=== PATIENT | female | born 1985 | race Hispanic/Latino ===

== ENCOUNTER 2022-12-20 11:28 | Day surgery (SDC) | payer OTHER ==
[2022-12-20 17:12] LABS: Hematocrit 40.3 % (34.9-44.5); Hemoglobin 13.6 g/dL (12.0-15.5); Mean Corpuscular HGB CONC 33.7 g/dL (32.0-36.0); Mean Corpuscular Hemoglobin 29.6 pg (27.0-33.0); Mean Corpuscular Volume 87.8 fl (81.6-98.3); Mean Platelet Volume 10.7 fl (7.4-10.4); Platelet Count 223 10x3/uL (150-450); RBC Distribution Width 13.9 % (11.5-14.5); Red Blood Cell (RBC) Count 4.59 10x6/uL (3.90-5.03); White Blood Cell (WBC) Count 10.3 10x3/uL (3.5-10.5)
[2022-12-20 17:42] LABS: ALT (SGPT) 26 U/L (8-55); AST (SGOT) 25 U/L (5-34); Albumin 3.1 g/dL (3.5-5.0); Alkaline Phosphatase 171 U/L (40-110); Anion Gap 13 mmol/L (10-20); BUN (Urea Nitrogen) 6 mg/dL (7.0-18.7); Bilirubin, Total 0.3 mg/dL (0.2-1.2); Calc. Creatinine Clearance 0 mL/min (70-130); Calcium 8.6 mg/dL (7.8-10.44); Carbon Dioxide 17 mmol/L (22-29); Chloride 110 mmol/L (98-107); Estimated GFR 118; Globulin 2.7 g/dL (2.4-3.5); Glucose 90 mg/dL (70-105); Potassium 3.8 mmol/L (3.5-5.1); Protein, Total 5.8 g/dL (6.0-8.3); Sodium 136 mmol/L (136-145)
[2022-12-20 18:02] LABS: Syphilis Antibody Nonreactive (Nonreactive); Syphilis Antibody Index 0.05 S/CO (<1.00 Non-Reactive)
[2022-12-20 18:03] LABS: HBSAg Index 0.15 S/CO (0-0.99); Hep B Surf Ag - L&D Non-Reactive S/CO (NonReactive)
[2022-12-20 20:19] LABS: Hemoglobin A1c 5.7 % (4.0-6.0)
== END 2022-12-20 14:50 | disposition home health service (06) ==
LOC: CSHLD/OP 11:28
PROVIDERS: ATTEND Family Medicine
DX: Z36.89 Encounter for other specified antenatal screening (principal); O09.513 Supervision of elderly primigravida, third trimester; O41.03X0 Oligohydramnios, third trimester, not applicable or unspecified; O10.913 Unspecified pre-existing hypertension complicating pregnancy, third trimester; Z3A.36 36 weeks gestation of pregnancy
CPT/HCPCS: 76819; 80053; 83036; 85027; 86780; 86850; 86900; 86901; 87340

== ENCOUNTER 2022-12-22 11:29 | Inpatient (IN) | payer OTHER ==
[2022-12-22] MEDS ORDERED: NS w/ Oxytocin 30 units 500 ML IV SCH (12:02)
[2022-12-22] MEDS ORDERED: Bicitra 30 ML UDCUP PO PRN (12:02)
[2022-12-22] MEDS ORDERED: Promethazine HCl 25 MG/ML VIAL IM PRN ×3 (12:02→17:48)
[2022-12-22] MEDS ORDERED: Methylergonovine 0.2 MG/ML VIAL IM PRN (12:02)
[2022-12-22] MEDS ORDERED: Diphenoxylate HCl/Atropine Tablet PO PRN (12:02)
[2022-12-22] MEDS ORDERED: Famotidine/PF 20 mg/2ml Vial SLOW IVP PRN (12:02)
[2022-12-22] MEDS ORDERED: Ondansetron PF 4 MG/2 ML Vial IVP PRN ×3 (12:02→17:48)
[2022-12-22] MEDS ORDERED: Lactated Ringer's 1,000 ML IV SCH (12:02)
[2022-12-22] MEDS ORDERED: hydrALAZINE 20 MG/ML VIAL SLOW IVP PRN ×2 (12:02→17:48)
[2022-12-22] MEDS ORDERED: Misoprostol 200 MCG TAB PR PRN (12:02)
[2022-12-22] MEDS ORDERED: Carboprost 250 MCG/ML AMP IM PRN (12:02)
[2022-12-22] MEDS ORDERED: CEFAZOLIN 2 GM in Sodium Chloride 0.9% 100 ML IVPB SCH (12:02)
[2022-12-22] MEDS ORDERED: Azithromycin 500 MG in Sodium Chloride 0.9% 250 ML 250 ML IVPB SCH (12:02)
[2022-12-22] MEDS ORDERED: Tranexamic Acid 1,000 MG/10 ML VIAL IVP PRN (12:02)
[2022-12-22 12:03] VITALS: BMI 37.7
[2022-12-22 13:37] LABS: Amphetamine Not Detected (NotDetected); Barbiturates Screen Not Detected (NotDetected); Benzodiazepine Screen Not Detected (NotDetected); Cocaine Metabolite Screen Not Detected (NotDetected); Methadone Not Detected (NotDetected); Methamphetamine Not Detected (NotDetected); Opiate Screen Not Detected (NotDetected); Oxycodone Screen Not Detected (NotDetected); Phencyclidine (PCP) Not Detected (NotDetected); THC/Cannabinoid Screen Not Detected (NotDetected); Tricyclic Screen Not Detected (NotDetected)
[2022-12-22] MEDS ORDERED: Naloxone HCl 0.4 mg/ml Vial IVP PRN ×2 (13:52)
[2022-12-22] MEDS ORDERED: Meperidine HCl/PF 25 MG/ML VIAL SLOW IVP PRN (13:52)
[2022-12-22] MEDS ORDERED: Promethazine HCl 25 MG SUPP PR PRN (13:52)
[2022-12-22] MEDS ORDERED: diphenhydrAMINE 50 MG/ML VIAL IVP PRN (13:52)
[2022-12-22] MEDS ORDERED: Ondansetron HCl/PF 4 MG/2 ML Vial IVP PRN (13:52)
[2022-12-22] MEDS ORDERED: Moisturizing Cream (Eucerin) 113 GM JAR TOP PRN (13:52)
[2022-12-22] MEDS ORDERED: HYDROmorphone 2 MG/ML VIAL SLOW IVP PRN (13:52)
[2022-12-22] MEDS ORDERED: Ketorolac Tromethamine 30 MG/ML VIAL IVP PRN (13:52)
[2022-12-22] MEDS ORDERED: Naloxone HCl 0.4 mg/ml Vial IV PRN (13:52)
[2022-12-22] MEDS ORDERED: Fentanyl 100 MCG/2 ML VIAL SLOW IVP PRN (13:52)
[2022-12-22] MEDS ORDERED: Ondansetron PF 4 MG/2 ML Vial ONE (13:59)
[2022-12-22] MEDS ORDERED: Morphine PF 10 MG/10 ML VIAL ONE (13:59)
[2022-12-22] MEDS ORDERED: Dexamethasone 4 mg/ml Vial ONE (13:59)
[2022-12-22] MEDS ORDERED: fentaNYL 50 mcg/mL 1 mL Vial ONE (13:59)
[2022-12-22] MEDS ORDERED: Oxytocin 10 UNITS/ML VIAL ONE ×2 (13:59→15:05)
[2022-12-22] MEDS ORDERED: Communication Order-Pharmacy FS SCH (14:00)
[2022-12-22] MEDS ORDERED: Ketorolac Tromethamine 30 MG/ML VIAL IVP SCH (14:00)
[2022-12-22] MEDS ORDERED: PHENYLEPHRINE-NS 100 MCG/ML 10 ML SYRINGE ONE (14:03)
[2022-12-22] MEDS ORDERED: Phenylephrine 10 MG/ML VIAL ONE (14:49)
[2022-12-22] MEDS ORDERED: Bisacodyl 10 MG SUPP PR PRN (17:48)
[2022-12-22] MEDS ORDERED: diphenhydrAMINE 25 MG CAP PO PRN (17:48)
[2022-12-22] MEDS ORDERED: Boostrix 0.5 ML (Tdap) VIAL (>/=7 yrs of age) IM ONE (17:48)
[2022-12-22] MEDS ORDERED: Lanolin Ointment 7 GM TUBE TOP PRN (17:48)
[2022-12-22] MEDS: Ferrous Sulfate 325 MG TAB PO SCH (20:48)
[2022-12-22] MEDS: Simethicone Chewable 80 MG TAB PO PRN (20:48)
[2022-12-22] MEDS: Labetalol HCl 200 MG TAB PO SCH (20:48)
[2022-12-22] MEDS: Ketorolac Tromethamine 30 MG/ML VIAL IVP SCH (20:48)
[2022-12-22] MEDS: Docusate 100 MG CAP PO SCH (20:49)
[2022-12-23] MEDS ORDERED: Meperidine HCl/PF 25 MG/ML VIAL IM PRN (02:00)
[2022-12-23] MEDS: Ketorolac Tromethamine 30 MG/ML VIAL IVP SCH (02:25)
[2022-12-23 04:04] LABS: Hematocrit 35.2 % (34.9-44.5); Hemoglobin 12.2 g/dL (12.0-15.5); Mean Corpuscular HGB CONC 34.7 g/dL (32.0-36.0); Mean Corpuscular Hemoglobin 29.8 pg (27.0-33.0); Mean Corpuscular Volume 85.9 fl (81.6-98.3); Mean Platelet Volume 10.5 fl (7.4-10.4); Platelet Count 219 10x3/uL (150-450); RBC Distribution Width 13.7 % (11.5-14.5); White Blood Cell (WBC) Count 12.9 10x3/uL (3.5-10.5)
[2022-12-23] MEDS: Labetalol HCl 200 MG TAB PO SCH ×3 (05:21→21:47)
[2022-12-23] MEDS: Ferrous Sulfate 325 MG TAB PO SCH ×2 (08:30→19:08)
[2022-12-23] MEDS: Ibuprofen 800 MG TAB PO SCH ×2 (08:33→17:38)
[2022-12-23] MEDS: Prenatal Vitamin 1 TAB PO SCH (08:33)
[2022-12-23] MEDS: HYDROcodone/Acetaminophen 5/325 mg Tablet PO PRN ×4 (08:33→23:39)
[2022-12-23] MEDS: Docusate 100 MG CAP PO SCH ×2 (08:33→21:40)
[2022-12-23] MEDS: Simethicone Chewable 80 MG TAB PO PRN ×2 (17:38→21:40)
[2022-12-24] MEDS: Simethicone Chewable 80 MG TAB PO PRN ×3 (02:53→08:07)
[2022-12-24] MEDS: Ibuprofen 800 MG TAB PO SCH ×2 (02:53→10:22)
[2022-12-24] MEDS: Labetalol HCl 200 MG TAB PO SCH ×2 (05:12→13:41)
[2022-12-24] MEDS: HYDROcodone/Acetaminophen 5/325 mg Tablet PO PRN ×3 (05:21→17:24)
[2022-12-24] MEDS: Ferrous Sulfate 325 MG TAB PO SCH (07:43)
[2022-12-24] MEDS: Prenatal Vitamin 1 TAB PO SCH (08:06)
[2022-12-24] MEDS: Docusate 100 MG CAP PO SCH (08:07)
[2022-12-24 11:36] VITALS: TEMP 98.4
[2022-12-24 13:43] VITALS: BP 140/70
== END 2022-12-24 18:00 | disposition home or self-care (01) | DRG 787 ==
LOC: CSHLD 11:29 → CSHPP 17:46
PROVIDERS: ADMIT Family Medicine; ATTEND Family Medicine
PROC: 10D00Z1 Extraction of Products of Conception, Low, Open Approach (ICD-10-PCS; principal; 2022-12-22)
DX: O34.211 Maternal care for low transverse scar from previous cesarean delivery (principal); O10.92 Unspecified pre-existing hypertension complicating childbirth; Z3A.37 37 weeks gestation of pregnancy; Z37.0 Single live birth; O99.824 Streptococcus B carrier state complicating childbirth; O34.13 Maternal care for benign tumor of corpus uteri, third trimester; D25.9 Leiomyoma of uterus, unspecified; O99.62 Diseases of the digestive system complicating childbirth; K66.0 Peritoneal adhesions (postprocedural) (postinfection); O24.424 Gestational diabetes mellitus in childbirth, insulin controlled; Z79.4 Long term (current) use of insulin; Z79.899 Other long term (current) drug therapy
CPT/HCPCS: 36415; 36416; 51702; 80306; 85027; J1100; J1885; J2274; J2370; J2405; J2590; J3010